=== PATIENT | female | born 2000 | race Asian ===

== ENCOUNTER 2023-08-07 20:37 | Emergency (ER) | payer OTHER ==
[~2023-08-07] VITALS: Ht 162.6 cm; Wt 72.6 kg
[2023-08-07 20:50] VITALS: BP 160/76; PULSE 88; RESP 18; TEMP 97.9
[2023-08-07] MEDS: NACL 0.9% 1,000 ML IV ONE (21:35)
[2023-08-07] MEDS: MECLIZINE 25 MG TAB PO ONE (21:37)
[2023-08-07 21:38] LABS: BASOPHILS # (AUTO) 0.1 K/uL (0.00-0.22); BASOPHILS % (AUTO) 0.5 % (0.0-2.0); EOSINOPHILS # (AUTO) 0.1 K/uL (0-0.4); EOSINOPHILS % (AUTO) 0.9 % (0.0-4.0); HEMATOCRIT 36.1 % (36-48); HEMOGLOBIN 11.4 g/dL (12.0-16.0); LYMPHOCYTES # (AUTO) 3.8 K/uL (2.5-16.5); LYMPHOCYTES % (AUTO) 30.9 % (20.5-51.1); MEAN CORPUSCULAR HEMOGLOBIN 20 pg (27-31); MEAN CORPUSCULAR HGB CONC 32 g/dL (33-37); MONOCYTES # (AUTO) 0.9 K/uL (0.8-1.0); NEUTROPHILS # (AUTO) 7.4 K/uL (1.8-7.7); NEUTROPHILS % (AUTO) 60.7 % (42.2-75.2); PLATELET COUNT (AUTO) 294 K/uL (140-450); RED BLOOD CELL COUNT(AUTO) 5.64 MIL/uL (4.20-5.40); RED CELL DISTRIBUTION WIDTH 15.1 % (11.6-13.7); WHITE BLOOD COUNT (AUTO) 12.2 K/uL (4.5-11.0)
[2023-08-07 21:39] VITALS: O2SAT 99
[2023-08-07] MEDS: ONDANSETRON 4 MG/2 ML VIAL IVP ONE (21:40)
[2023-08-07 21:54] LABS: ANION GAP 11.4 (8-16); CALCIUM 8.6 mg/dL (8.5-10.1); CARBON DIOXIDE 30.5 mmol/L (21-32); CREATININE 0.7 mg/dL (0.6-1.3); POTASSIUM 3.9 mmol/L (3.5-5.1)
[2023-08-07 21:57] LABS: INR 1.01 (0.8-1.2); PARTIAL THROMBOPLASTIN TIME 30.9 secs (22-35.6); PROTHROMBIN TIME 10.6 secs (10.8-13.4)
[2023-08-07] MEDS ORDERED: MECL-303 PO (22:17)
[2023-08-07] MEDS ORDERED: ONDA-188 PO (22:17)
== END 2023-08-07 22:37 | disposition home or self-care (01) ==
LOC: MED 20:37
DX: R42 Dizziness and giddiness (principal); F41.9 Anxiety disorder, unspecified; R73.03 Prediabetes; E78.5 Hyperlipidemia, unspecified
CPT/HCPCS: 36415; 71045; 80048; 81025; 84484; 85025; 85610; 85730; 96361; 96374; 99285; J2405; J7030; J8597